=== PATIENT | male | born 1950 | race African-American/Black ===

== ENCOUNTER 2019-09-16 03:47 | Inpatient (IN) | payer MEDICAID ==
[~2019-09-16] VITALS: Ht 182.9 cm; Wt 78.5 kg
--- NOTE | 2019-09-16 04:00 | NUR ---
Patient BIB [employer] wondering the street. Patient is only alert to name and place at times. Patient calm and cooperative but does not know where he lives. [employer] placed patient on hold on 5150 hold for GD.
[2019-09-16 04:27] LABS: BASOPHILS # (AUTO) 0.1 K/uL (0.0-8.0); BASOPHILS % (AUTO) 1.3 % (0.0-2.0); EOSINOPHILS # (AUTO) 0.2 K/uL (0.0-0.7); HEMOGLOBIN 13.7 g/dL (12.5-16.3); LYMPHOCYTES # (AUTO) 1.5 K/uL (20.0-40.0); LYMPHOCYTES % (AUTO) 22.2 % (20.5-51.5); MEAN CORPUSCULAR HEMOGLOBIN 31.8 uug (23.8-33.4); MEAN CORPUSCULAR HGB CONC 35 g/dL (32.5-36.3); MEAN CORPUSCULAR VOLUME 90.2 fL (73.0-96.2); MONOCYTES # (AUTO) 0.5 K/uL (2.0-10.0); MONOCYTES % (AUTO) 7.7 % (0.0-11.0); NEUTROPHILS # (AUTO) 4.6 K/uL (1.8-8.9); NEUTROPHILS % (AUTO) 65.8 % (38.5-71.5); PLATELET COUNT (AUTO) 463 K/uL (152-348); RED BLOOD CELL COUNT(AUTO) 4.32 MIL/uL (4.06-5.63)
[2019-09-16 04:28] LABS: *BILIRUBIN,URIN 1+ (NEGATIVE); *BLOOD, URINE NEGATIVE (NEGATIVE); *COLOR,URINE YELLOW (YELLOW); *KETONES,URINE TRACE (NEGATIVE); LEUKOCYTE ESTERASE ,URINE NEGATIVE (NEGATIVE); NITRITE, URINE NEGATIVE (NEGATIVE); PH,URINE 5.5 (5.0-8.0); UGLUCOSE 2+ (NEGATIVE)
[2019-09-16 04:31] LABS: *CLARITY,URINE SLIGHTLY CLOUDY (CLEAR)
[2019-09-16 04:35] LABS: BACTERIA,URINE FEW /HPF (NONE SEEN); RBC,URINE NONE SEEN /HPF (0-3); SQUAMOUS EPITHELIAL CELL,UR MODERATE /HPF (NONE SEEN); WBC,URINE 0-3 /HPF (0-3)
[2019-09-16 04:43] LABS: *AMPHETAMINE, URINE NEGATIVE (NEGATIVE); *BARBITURATE, URINE NEGATIVE (NEGATIVE); *CANNABINOID, URINE NEGATIVE (NEGATIVE); *COCCAINE, URINE NEGATIVE (NEGATIVE); *OPIATE, URINE NEGATIVE (NEGATIVE); *PHENCYCLIDINE SCREEN,URINE NEGATIVE (NEGATIVE)
[2019-09-16 04:45] LABS: CARBON DIOXIDE 28 mmol/L (21-32); CHLORIDE 105 mmol/L (98-107); GLUCOSE 247 mg/dL (74-106); POTASSIUM 3.6 mmol/L (3.5-5.1); UREA NITROGEN, BLOOD 23 mg/dL (7-18)
[2019-09-16 04:50] LABS: ALANINE AMINOTRANSFERASE 14 U/L (16-63); ALKALINE PHOSPHATASE 103 U/L (50-136); ASPARTATE AMINOTRANSFERASE 29 U/L (15-37); BILIRUBIN,DIRECT 0.1 mg/dL (0.0-0.2); BILIRUBIN,TOTAL 0.5 mg/dL (0.2-1.0); TOTAL PROTEIN, SERUM 7.3 g/dL (6.4-8.2)
[2019-09-16 04:52] LABS: ACETAMINOPHEN < 2.0 ug/mL (10-30)
[2019-09-16 05:00] LABS: ETHANOL < 3 MG/DL (0-0)
--- NOTE | 2019-09-16 06:12 | NUR ---
Dr Charles spoke with Angelica HOLLINGSWORTH automation architect for [facility]. Ok to admit to [facility].
[2019-09-16 07:30] VITALS: BP 116/65
--- NOTE | 2019-09-16 07:30 | NUR ---
Received patient from ER per barrington a 69 year old male Gibralt[place] alert and ox2. Admitted in MHU, on hold, 5150 by [employer] for gravely disabled, patient found by police walking around street and unable to provide address or where he was going. Upon face to face, patient malodorous , confused unable to give address where his live and unble to give names of his family to contact with. Dr Hooker, covering Dr. Johns notified by charge nurse with orders. [facility] medical group DIRECTOR STRATEGIC PLANNING, Isabel notified. Blood sugar check on admission 155 mg /dl. Will give shower today. Will continue to monitor behavior.
[2019-09-16] MEDS ORDERED: TEMAZEPAM 7.5 MG CAPSULE PO PRN (08:00)
[2019-09-16] MEDS ORDERED: BLOOD SUGAR DIAGNOSTIC 1 EACH STRIP VI ONE (08:00)
[2019-09-16] MEDS ORDERED: MAGNESIUM HYDROXIDE 30 ML LIQUID UDC PO PRN (08:00)
[2019-09-16] MEDS ORDERED: ACETAMINOPHEN 325 MG TABLET PO PRN (08:00)
[2019-09-16] MEDS ORDERED: MAG HYDROX/AL HYDROX/SIMETH 30 ML LIQUID UDC PO PRN (08:00)
[2019-09-16] MEDS ORDERED: LORAZEPAM 0.5 MG TABLET PO PRN (08:00)
[2019-09-16] MEDS: QUETIAPINE FUMARATE 25 MG TABLET PO SCH ×2 (11:01→20:57)
--- NOTE | 2019-09-16 14:30 | NUR ---
Social Work/Initial Discharge Note: Patient currently resides at his home [address] [place] [address] ([phone]). Patient does not have any supportive contacts to collect collateral information. Patient may need alternate [place] placement upon discharge. SW will continue to work with patient, family, and MD to ensure a safe and proper discharge plan.
[2019-09-16 16:00] VITALS: BP 108/50
[2019-09-16 20:55] VITALS: BP 105/58
--- NOTE | 2019-09-16 21:30 | NUR ---
RECEIVED PATIENT IN HIS ROOM IN BED. HE IS NOTED AWAKE A/O X 3. HE IS NOTED WITHDRAWN AND ISOLATIVE; HOWEVER, HE DENIES SI/HI/VH/AH. PATIENT ABLE TO VERBALIZED FEELINGS. HE STATED THAT HE HAS A HOME BUT SOMETIMES HE CAN'T SLEEP AT NIGHT SO, HE GOES FOR A WALK AROUND HIS HOME. HE ALSO STATED THAT HE DOES NOT HAVE ANY FAMILY THAT LIVES CLOSED BY OR ANY SUPPORT. HE IS COMPLIANT WITH MEDICATION REGIMENT AT THIS TIME. V/S STABLE. PATIENT ABLE TO COMPLY WITH MEDICATION REGIMENT AT THIS TIME. PT IS REASSURED FOR HIS SAFETY. SAFETY AND FALL PRECAUTION IN PLACE. WILL CONTINUE TO MONITOR.
[2019-09-17 07:30] VITALS: BP 99/47
[2019-09-17] MEDS: QUETIAPINE FUMARATE 25 MG TABLET PO SCH ×2 (08:57→20:07)
[2019-09-17 15:23] VITALS: BP 118/52
[2019-09-17] MEDS: METFORMIN HCL 500 MG TABLET PO SCH (18:10)
[2019-09-17 20:32] VITALS: BP 125/63
--- NOTE | 2019-09-18 06:37 | NUR ---
Received Pt in his room reading, A+Ox2 with episodes of forgetfulness. Pt is guarded with personal information and give minimal disclosure. Compliant with medications, cooperative with care. Noted to be seclusive, withdrawn and isolative. Affect is flat, and appears anxious regarding his medications, education provided. Pt denies he is depressed, though he appears to be. Denies SI/HI. Denies pain, VS stable. Shower given this morning.
[2019-09-18 07:30] VITALS: BP 117/61
[2019-09-18] MEDS: METFORMIN HCL 500 MG TABLET PO SCH ×2 (08:30→16:40)
[2019-09-18] MEDS: QUETIAPINE FUMARATE 25 MG TABLET PO SCH ×2 (08:30→20:14)
--- NOTE | 2019-09-18 11:59 | NUR ---
Received patient in room sitting on the edge of the bed. A/O x2. VS stable. Patient stated that he is here to "Get some sleep". After breakfast patient laying down in bed with the covers over his head, Patient refused to participate in group or leave the room at this time. Noted to anger easily. Continuing to monitor for safety or behavior escalation. Medication compliant.
[2019-09-18 15:50] VITALS: BP 119/65
[2019-09-18 20:12] VITALS: BP 126/64
--- NOTE | 2019-09-19 06:11 | NUR ---
Nursing Note: Received Pt in his room reading, A+Ox2 with episodes of forgetfulness. Remains guarded with personal information and give minimal disclosure. Forgetful regarding where he lives and family contact information. Compliant with medications, cooperative with care. Noted to be seclusive, withdrawn and isolative. Affect is flat, and appears anxious regarding his medications, education provided. Denies SI/HI. Denies pain, VS stable.
[2019-09-19 07:30] VITALS: BP 134/66
[2019-09-19] MEDS: METFORMIN HCL 500 MG TABLET PO SCH ×2 (08:49→17:07)
[2019-09-19] MEDS: QUETIAPINE FUMARATE 25 MG TABLET PO SCH ×3 (08:49→17:07)
--- NOTE | 2019-09-19 10:15 | NUR ---
Social Work/Firearms Report (DOJ): Sap Analyst completed and submitted a DPJ firearms report for 5150 grave disability certification. A copy of report has been placed in patient chart.
--- NOTE | 2019-09-19 10:52 | NUR ---
Social Work/Discharge Planning:\ Ip Architect faxed patient's referral packet including: History and Physical, Consultation, Progress Notes, Medication List and Labs to the following facility for review and possible fpc placement: [facility] guido Acuna
--- NOTE | 2019-09-19 12:13 | NUR ---
Social Work/Discharge Note: Patient will be discharged to [facility] facility [address] [place] [address] ([phone]). Patient will be transported by ambulance at 2pm. Spoke with Armand sale professional digital marketing and Mary admin coordinator at the facility who states they are ready to accept the patient today. Patient will follow-up at the facility with Dr. Lance Brush Hand and Dr. Hooker Psychiatrist. Patient is alert and oriented times 2, denies suicidal or homicidal ideation, and is aware and agreeable with discharge plans. Patient presents with normal mood and congruent affect. Patient is unable to plan for self-care at this time, however, is willing to accept care provided at the facility. Patient does not have any family or supportive contacts to notify. Addendum: 09/19/19 at 1327 by CHERYL MCGRAW Patient's discharge postponed to tomorrow due to transportation issues through Medical.
[2019-09-19 15:30] VITALS: BP 119/72
[2019-09-19 20:00] VITALS: BP 134/72
--- NOTE | 2019-09-20 06:44 | NUR ---
Nursing Note: Received Pt pacing the day room. Exhibits pressured speech and anxious affect. Remains somewhat paranoid and suspicious of staff, but more cooperative this shift. Compliant with PO medications after education provided. Pt remains internally preoccupied and responds to internal stimuli at times. VS stable, denies pain. In no acute distress.
[2019-09-20] MEDS: METFORMIN HCL 500 MG TABLET PO SCH ×2 (08:25→17:15)
[2019-09-20] MEDS: QUETIAPINE FUMARATE 25 MG TABLET PO SCH ×3 (08:25→17:15)
--- NOTE | 2019-09-20 08:52 | NUR ---
Social Work/Discharge Note: Patient will be discharged to [facility] facility [address] [place] [address] ([phone]). Patient will be transported by ambulance at 2pm. Spoke with Armand marketing performance analyst and Mary admin coordinator at the facility who states they are ready to accept the patient today. Patient will follow-up at the facility with Dr. Lance Service Coordinator and Dr. Hooker Psychiatrist. Patient is alert and oriented times 2, denies suicidal or homicidal ideation, and is aware and agreeable with discharge plans. Patient presents with normal mood and congruent affect. Patient is unable to plan for self-care at this time, however, is willing to accept care provided at the facility. Patient does not have any family or supportive contacts to notify. Addendum: 09/20/19 at 1543 by CHERYL MCGRAW Cancelled discharge plan due to [employer] not authorizing a penitentiary facility not contracted with them.
--- NOTE | 2019-09-20 11:16 | NUR ---
Social Work SW spoke with Torri numerical analysis group manager from [facility] ([phone] ext: [phone]) who stated that in order for them to authorize fdc care for the patient at [facility] ([phone]), their contracted facilities would need to deny the patients admissions first. Torri gave a list of their contracted facilities: [facility] attention to Anabella ) ) [facility] ) [facility] to Debby ) ) [facility] attention to Deanne ) ) Awaiting responses.
--- NOTE | 2019-09-20 14:23 | NUR ---
Social Work Note: odd job worker contacted MARGARETTE ([phone]) and spoke to multiple spindle screw machine operator 202. This medical technical writer reported a welfare check at patients [address] [address]; ([phone]). Section Beamer 202, reported that they will contact this medical technical writer within less than 24 hours. Addendum: 09/20/19 at 1511 by CHERYL MCGRAW Manufacturing Finance Manager called MARGARETTE ([phone]) 4 times to reach the multiple spindle screw machine operator and unable to reach, keeps going to voicemail. Addendum: 09/20/19 at 1539 by CHERYL MCGRAW Manufacturing Finance Manager spoke with Officer Ash Noguera ([phone]) who made a welfare check at the patient's address [address] [place] [address] ([phone]) and spoke with the landlord, who stated that the patient has not lived at this address for over 5 years. Officer Chuckie [facility] a recent [facility] check was made recently requested from [facility] in [place] for similar reasons. Officer Chuckie gave a phone number for the patient's daughter's mother, Ela ([phone]) however, this medical technical writer left a voicemail and is waiting for a call back.
[2019-09-20 15:32] VITALS: BP 122/68
--- NOTE | 2019-09-20 15:43 | NUR ---
Social Work Note/Discharge Planning: Relay Motorman called and left a voicemail for Loren ([phone]) to evaluate the patient today for possible board and care facility placement.
--- NOTE | 2019-09-20 15:56 | NUR ---
Social Work Note: SRINIVASA left a voicemail for Torri manager army from [facility] ([phone] ext: [phone]) to request information regarding filing a grievance and contact information for a supervisor contact and service clerks. Awaiting for a call back. Addendum: 09/20/19 at 1632 by CHERYL MCGRAW Torri called this telegraphic typewriter repairer and stated that there is a [facility] (not just [facility]) who wants them to make sure they check all the contracted facilities first before authorizing an EFREN which will also take 3 days. To speak to a supervisor contact and service clerks Torri will call this telegraphic typewriter repairer back with a phone number.
--- NOTE | 2019-09-20 20:30 | NUR ---
RECEIVED PATIENT IN HIS ROOM IN BED. HE IS NOTED AWAKE A/O X3 CALM AND PLEASANT UPON APPROACHED. PT IS ABLE TO VERBALIZED FEELINGS, AND ABLE TO AMBULATE WITH STEADY GAIT. HE IS NOTED WITH LOW MOOD, ISOLATIVE AND WITHDRAWN. HE DENIES SI/HI/VA/AH. PATIENT V/S STABLE. PATIENT WAS GIVEN SNACKS AND PO FLUIDS. HE IS REASSURED FOR HIS SAFETY. SAFETY AND FALL PRECAUTION IN PLACE. WILL CONTINUE TO MONITOR.
[2019-09-20 21:27] VITALS: BP 148/70
[2019-09-21 07:30] VITALS: BP 115/47
[2019-09-21] MEDS: QUETIAPINE FUMARATE 25 MG TABLET PO SCH ×3 (09:07→17:39)
[2019-09-21] MEDS: METFORMIN HCL 500 MG TABLET PO SCH ×2 (09:07→17:39)
--- NOTE | 2019-09-21 09:41 | NUR ---
Social Work Note: Stone Engraver spoke with Samantha case specialist at [facility] ([phone] ext. [phone]) who stated she is working on finding the patient a halfway facility since yesterday. This senior underwriter informed Samantha of the importance to discharge the patient promptly from [facility]. Samantha stated "I am working on it". This senior underwriter spoke with Torri Electrical Power Station Technician at [facility] ([phone]. [phone] and inquired about how to file for a grievance for EFREN, and Torri stated that there is no need for this since they are obligated to find out if all their contracted facilities will accept or deny the patient before they can issue a EFREN with a non-contracted facility. This senior underwriter has asked about an extension and name for a Hearth [employer]eder, Torri gave the wrong extension ([phone], ext. [phone]). This senior underwriter called this extension and spoke with Nini who gave the name of the model and pattern supervisor Letty ext. [phone]. This senior underwriter called and left a voicemail for a return call regarding this matter.
--- NOTE | 2019-09-21 15:27 | NUR ---
Social Work/Discharge Note: Patient will be discharged to [facility] [address] [address]. Kasia senior administrator support ([phone]) states they are ready to accept the patient today and will be picking the patient up at 4pm. Patient is aware and agreeable with discharge plans. Patient is alert and oriented x2-3, is unable to plan for self-care at this time, however, is willing to accept care at the facility. Patient denies any suicidal or homicidal ideation. The patient will be following up with a primary care physician that is provided by the facility Dr. Lopez Kent and psychiatrist Dr. Reed. Patient was provided with outpatient mental health resources to [facility] Crisis Line , and the [place] Suicide Prevention Lifeline . Patient has no family or supportive contacts to notify. Addendum: 09/21/19 at 1634 by CHERYL MCGRAW DISCHARGE CHANGED: Patient is refusing to go to [facility] provided by Kaisa [address] [address]. Kasia senior administrator support ([phone]). SRINIVASA explained patient his options of going to the Board and Care or Homeless Skilled Nursing, however patient continuously refused. Patient agreed to return to his private residence [address] [place] [id number], where he currently has a tenant renting the home from him, Aly ([phone]) who has agreed to let patient return back. Aly will most likely helkp patient by taking him to [facility] contracted facility or hospital. Patient is provided with resource to [facility] [address] [address] ([phone]). Patient is provided with [employer] transportation at 6pm today. Patient's insurance [facility] has failed to provide patient with contracted [place] facility placements, window caser Torri ([phone] ext. [phone]) and Samantha ([phone] ext. [phone]) who have been working with this writer editor have been unsuccessful and not agreeing to authorize an EFREN with accepting [place] facility provided by this hospital. Patient was provided with the homeless fpc packet, which includes a list of emergency shelters, housing resources, drop in centers, and showers/hot meals centers. This also included the Homeless Information Hotline (727)-705-7213 or 211, [place] for [employer] (196)- 536-9605, and the [facility] (775)-728-5523. Patient was also provided with outpatient mental health resources to [facility] Crisis Line , and the National Suicide Prevention Lifeline .
[2019-09-21 16:00] VITALS: BP 131/75
--- NOTE | 2019-09-21 16:34 | NUR ---
Social Work/Discharge Note: Patient is refusing to go to [facility] provided by Kasia [address] [address]. Kasia logistics administrator ([phone]). SRINIVASA explained patient his options of going to the Board and Care or Homeless Long-Term, however patient continuously refused. Patient agreed to return to his private residence [address] [place] [address], where he currently has a tenant renting the home from him, Aly ([phone]) who has agreed to let patient return back. Danelandy will most likely help patient by taking him to [facility] contracted facility or hospital. Patient is provided with resource to [facility] [address] [place] [address] ([phone]). Patient is provided with [employer] transportation at 6pm today. Patient's insurance [facility] has failed to provide patient with contracted longterm facility placements, behavioral health case manager Torri ([phone] ext. [phone]) and Samantha ([phone] ext. [phone]) who have been working with this property underwriter have been unsuccessful and not agreeing to authorize an EFREN with accepting longterm facility provided by this hospital. Patient was provided with the homeless [place] health [place] facility packet, which includes a list of emergency shelters, housing resources, drop in centers, and showers/hot meals centers. This also included the Homeless Information Hotline (480)-922-1971 or 211, [place] for [employer] , and the [facility] (190)-692-9510. Patient was also provided with outpatient mental health resources to [facility] Crisis Line , and the National Suicide Prevention Lifeline .
--- NOTE | 2019-09-21 16:34 | NUR ---
Social Work Note: Patient is fully independent and able to conduct his own ADL's. Patient able to make his own decisions and is adamant on leaving. Patient is able to make his needs known and presents to have understanding of his presenting problems.
--- NOTE | 2019-09-21 16:35 | NUR ---
Social Work/Discharge Note: Discharge plans were discussed with and approved by Braided Band Assembler, Kaesy Dsouza.
--- NOTE | 2019-09-21 18:24 | NUR ---
Pt is being discharged to his residence via [employer] transportation. Pt agrees to go to the destination. All belongings returned. VS are stable. Pt is A/O x 3. Pt denies distress. Discharge instructions are given including the list of resources. Pt verbalizes understanding.
--- NOTE | 2019-09-22 10:00 | NUR ---
Social Work/APS Report: SW made an APS report for self-neglect. Report (Intake ID [id number]) was submitted on 09/22/2019 at 9:58 AM.
--- NOTE | 2019-09-22 16:16 | NUR ---
Social Work APS Contact: Social Work received a call from Stacy Irwin [facility] [place] ([phone]) who was inquiring about the APS report this administrative underwriter had filed yesterday. Stacy stated they received 4 reports regarding this patient. This administrative underwriter updated Stacy with the patient current address. Stacy Stated she ill be visiting the patient and provide the appropriate care.
== END 2019-09-21 18:28 | disposition home or self-care (01) | DRG 751 ==
LOC: ER 03:51 → GPS 07:22
PROVIDERS: ADMIT Psychiatry & Neurology Psychiatry; ATTEND Nurse Practitioner Acute Care
DX: F29 Unspecified psychosis not due to a substance or known physiological condition (principal); G93.40 Encephalopathy, unspecified; F03.91 Unspecified dementia, unspecified severity, with behavioral disturbance; E11.9 Type 2 diabetes mellitus without complications; Z91.83 Wandering in diseases classified elsewhere; E86.0 Dehydration; R79.89 Other specified abnormal findings of blood chemistry; Z79.84 Long term (current) use of oral hypoglycemic drugs
CPT/HCPCS: 36415; 70030-TC; 70450; 71045; 80307; 83605; 84443; 85025; 85730; 87040; 87086; 93005; A4663; G0480; G0480-TC